=== PATIENT | male | born 1980 | race Caucasian/White ===

== ENCOUNTER 2018-05-02 05:34 | Day surgery (SDC) | payer OTHER ==
[~2018-05-02] VITALS: Ht 175.3 cm; Wt 72.1 kg
[2018-05-02 13:18] VITALS: BP 130/83
== END 2018-05-02 11:47 | DRG 352 ==
LOC: ORM 05:34
PROVIDERS: ATTEND Surgery
PROC: 0YU60JZ Supplement Left Inguinal Region with Synthetic Substitute, Open Approach (ICD-10-PCS; principal; 2018-05-02)
DX: K40.90 Unilateral inguinal hernia, without obstruction or gangrene, not specified as recurrent (principal)
CPT/HCPCS: C9290

== ENCOUNTER 2021-01-21 08:47 | Day surgery (SDC) | payer OTHER ==
[2021-01-21 11:54] VITALS: BP 131/78
== END 2021-01-21 14:01 | DRG 352 ==
LOC: ORM 08:47
PROVIDERS: ATTEND Surgery
PROC: 0YU64JZ Supplement Left Inguinal Region with Synthetic Substitute, Percutaneous Endoscopic Approach (ICD-10-PCS; principal; 2021-01-21)
PROC: 0VBG4ZZ Excision of Left Spermatic Cord, Percutaneous Endoscopic Approach (ICD-10-PCS; 2021-01-21)
DX: K40.91 Unilateral inguinal hernia, without obstruction or gangrene, recurrent (principal); D17.6 Benign lipomatous neoplasm of spermatic cord
CPT/HCPCS: C1781; J0131; J2710